=== PATIENT | female | born 1940 | race Caucasian/White ===

== ENCOUNTER 2017-02-14 17:50 | Emergency (ER) | payer MEDICARE, OTHER ==
[2017-02-14] MEDS: HYDROmorphONE 1 MG/ML SYG IV (18:48)
[2017-02-14] MEDS: SOD CHLORIDE 0.9% 500 ML IV (18:48)
[2017-02-14] MEDS: ONDANSETRON 4 MG INJ IV (18:48)
[2017-02-14 19:06] LABS: ADD MAN DIFF? NO
[2017-02-14 19:08] LABS: BASOPHILS % 0.3 % (0.0-2.0); EOSINOPHILS # 0.2 10^3/ul (0.0-0.5); EOSINOPHILS % 2.1 % (0.0-7.0); HEMATOCRIT 40.6 % (37.0-47.0); HEMOGLOBIN 13.1 g/dl (12.0-16.0); LYMPHOCYTES # 1.8 10^3/ul (0.8-2.9); LYMPHOCYTES % 24.2 % (15.0-51.0); MEAN CORPUSCULAR HEMOGLOBIN 29.8 pg (29.0-33.0); MEAN CORPUSCULAR HGB CONC 32.3 g/dl (32.0-37.0); MEAN CORPUSCULAR VOLUME 92.3 fl (82.0-101.0); MEAN PLATELET VOLUME 9.3 fl (7.4-10.4); MONOCYTE # 0.6 10^3/ul (0.3-0.9); MONOCYTES % 7.9 % (0.0-11.0); NEUTROPHIL # 4.9 10^3/ul (1.6-7.5); NEUTROPHILS % 65.2 % (39.0-77.0); PLATELET COUNT 157 10^3/UL (140-415)
[2017-02-14 19:08] LABS: WHITE BLOOD COUNT 7.5 10^3/ul (4.8-10.8)
[2017-02-14 19:35] LABS: ALANINE AMINOTRANSFERASE 44 IU/L (13-69); ALBUMIN 4.7 g/dl (3.3-4.9); ALBUMIN/GLOBULIN RATIO 1.42; ALKALINE PHOSPHATASE 120 IU/L (42-121); ANION GAP 14 (8-16); ASPARTATE AMINO TRANSFERASE 32 IU/L (15-46); BILIRUBIN,INDIRECT 0.1 mg/dl (0-1.1); BILIRUBIN,TOTAL 0.1 mg/dl (0.2-1.3); BLOOD UREA NITROGEN 19 mg/dl (7-20); CALCIUM 9.2 mg/dl (8.4-10.2); CARBON DIOXIDE 29 mmol/L (21-31); CHLORIDE 103 mmol/L (97-110); CREATININE 0.77 mg/dl (0.44-1.00); GLUCOSE 100 mg/dl (70-220); POTASSIUM 3.9 mmol/L (3.5-5.1); SODIUM 142 mmol/L (135-144)
[2017-02-14] MEDS: HYDROmorphONE 2 MG/ML SYG IV (19:41)
== END 2017-02-14 22:21 | disposition home or self-care (01) ==
LOC: FTE 17:50
DX: G50.0 Trigeminal neuralgia (principal); I10 Essential (primary) hypertension
CPT/HCPCS: 36415; 80053; 85025; 96374; 96375; 96376; 99284-25

== ENCOUNTER 2017-02-15 17:42 | Inpatient (IN) | payer MEDICARE, OTHER ==
[2017-02-15] MEDS: HYDROmorphONE 0.5 MG/0.5 ML SYG IV (19:10)
[2017-02-15] MEDS: KETOROLAC 15 MG INJ IV (19:11)
[2017-02-15] MEDS: IOHEXOL 300MG/ML 150 ML BTL (19:19)
[2017-02-15] MEDS: SOD CHLORIDE 0.9% 100 ML (19:19)
[2017-02-15 19:24] LABS: ADD MAN DIFF? NO
[2017-02-15 19:26] LABS: BASOPHILS % 0.1 % (0.0-2.0); EOSINOPHILS % 0.4 % (0.0-7.0); HEMATOCRIT 37.2 % (37.0-47.0); HEMOGLOBIN 11.8 g/dl (12.0-16.0); LYMPHOCYTES # 0.8 10^3/ul (0.8-2.9); LYMPHOCYTES % 10.4 % (15.0-51.0); MEAN CORPUSCULAR HEMOGLOBIN 29.6 pg (29.0-33.0); MEAN CORPUSCULAR HGB CONC 31.7 g/dl (32.0-37.0); MEAN CORPUSCULAR VOLUME 93.2 fl (82.0-101.0); MEAN PLATELET VOLUME 8.8 fl (7.4-10.4); MONOCYTE # 0.2 10^3/ul (0.3-0.9); MONOCYTES % 2.6 % (0.0-11.0); NEUTROPHIL # 6.7 10^3/ul (1.6-7.5); NEUTROPHILS % 86.1 % (39.0-77.0); PLATELET COUNT 128 10^3/UL (140-415); RED BLOOD COUNT 3.99 10^6/ul (4.20-5.40)
[2017-02-15 19:26] LABS: WHITE BLOOD COUNT 7.8 10^3/ul (4.8-10.8)
[2017-02-15 19:43] LABS: ANION GAP 14 (8-16); BLOOD UREA NITROGEN 15 mg/dl (7-20); CALCIUM 9.1 mg/dl (8.4-10.2); CARBON DIOXIDE 28 mmol/L (21-31); CHLORIDE 101 mmol/L (97-110); CREATININE 0.71 mg/dl (0.44-1.00); GLUCOSE 130 mg/dl (70-220); POTASSIUM 4.1 mmol/L (3.5-5.1); SODIUM 139 mmol/L (135-144)
[2017-02-15] MEDS ORDERED: ACETAMINOPHEN 500 MG TAB (20:31)
[2017-02-15] MEDS: VANCOMYCIN 1 GM (PMX) 250 ML IVPB (20:59)
[2017-02-15] MEDS: CLINDAMYCIN 900 MG/D5W (PMX) 50 ML IVPB (20:59)
[2017-02-15] MEDS: SODIUM CHLORIDE 0.9% 1L BAG IV* (21:17)
[2017-02-15] MEDS ORDERED: NACL 0.9% 3 ML SYG IV (21:30)
[2017-02-15] MEDS ORDERED: ONDANSETRON 4 MG INJ IV (21:30)
[2017-02-15] MEDS ORDERED: BISACODYL (EC) 5 MG TAB PO (21:30)
[2017-02-15] MEDS ORDERED: VANCOMYCIN IV PER PHARMACY XX (21:30)
[2017-02-15] MEDS ORDERED: DOCUSATE SODIUM 100 MG CAP PO (21:30)
[2017-02-15 22:12] LABS: LACTIC ACID 2.1 mmol/L (0.5-2.0)
[2017-02-15] MEDS: METHYLPREDNISOLONE 40 MG INJ IV (23:15)
[2017-02-15] MEDS: carBAMAZepine CHEW 100 MG CHEW PO (23:15)
[2017-02-16 00:16] LABS: LACTIC ACID 1.6 mmol/L (0.5-2.0)
[2017-02-16] MEDS: SOD CHLORIDE 0.9% 1,000 ML IV ×2 (01:19→10:37)
[2017-02-16 01:28] LABS: LACTIC ACID 2.1 mmol/L (0.5-2.0)
[2017-02-16] MEDS: ACETAMINOPHEN 325 MG TAB PO (01:32)
[2017-02-16] MEDS: VALACYCLOVIR 500 MG TAB PO ×3 (02:44→13:58)
[2017-02-16] MEDS: HYDROmorphONE 0.5 MG/0.5 ML SYG IV ×2 (02:45→20:12)
[2017-02-16] MEDS: SOD CHLORIDE 0.9% 500 ML IV (04:55)
[2017-02-16 06:19] LABS: ADD MAN DIFF? NO
[2017-02-16] MEDS: PANTOPRAZOLE 40 MG INJ IV (06:31)
[2017-02-16 06:35] LABS: BASOPHILS % 0.1 % (0.0-2.0); EOSINOPHILS % 0.1 % (0.0-7.0); HEMATOCRIT 32.1 % (37.0-47.0); HEMOGLOBIN 10.3 g/dl (12.0-16.0); LYMPHOCYTES # 0.7 10^3/ul (0.8-2.9); LYMPHOCYTES % 9.6 % (15.0-51.0); MEAN CORPUSCULAR HEMOGLOBIN 29.9 pg (29.0-33.0); MEAN CORPUSCULAR HGB CONC 32.1 g/dl (32.0-37.0); MEAN CORPUSCULAR VOLUME 93.3 fl (82.0-101.0); MEAN PLATELET VOLUME 8.8 fl (7.4-10.4); MONOCYTE # 0.5 10^3/ul (0.3-0.9); MONOCYTES % 6.4 % (0.0-11.0); NEUTROPHIL # 6.3 10^3/ul (1.6-7.5); NEUTROPHILS % 83.4 % (39.0-77.0); PLATELET COUNT 119 10^3/UL (140-415); RED BLOOD COUNT 3.44 10^6/ul (4.20-5.40); RED CELL DISTRIBUTION WIDTH 13.2 % (11.5-14.5)
[2017-02-16 06:35] LABS: WHITE BLOOD COUNT 7.5 10^3/ul (4.8-10.8)
[2017-02-16 07:00] LABS: LACTIC ACID 1.3 mmol/L (0.5-2.0)
[2017-02-16 07:04] LABS: ALANINE AMINOTRANSFERASE 38 IU/L (13-69); ALBUMIN 3.4 g/dl (3.3-4.9); ALBUMIN/GLOBULIN RATIO 1.25; ALKALINE PHOSPHATASE 81 IU/L (42-121); ANION GAP 13 (8-16); ASPARTATE AMINO TRANSFERASE 21 IU/L (15-46); BILIRUBIN,INDIRECT 0.4 mg/dl (0-1.1); BILIRUBIN,TOTAL 0.4 mg/dl (0.2-1.3); BLOOD UREA NITROGEN 13 mg/dl (7-20); CALCIUM 8.3 mg/dl (8.4-10.2); CARBON DIOXIDE 27 mmol/L (21-31); CHLORIDE 106 mmol/L (97-110); CHOL/HDL RATIO 2.6 RATIO; CHOLESTEROL 164 mg/dl (100-200); CREATININE 0.69 mg/dl (0.44-1.00); GLUCOSE 130 mg/dl (70-220); HDL CHOLESTEROL 63 mg/dl (33-92); LDL CHOLESTEROL,CALCULATED 85 mg/dl; MAGNESIUM 1.9 mg/dl (1.7-2.5); POTASSIUM 4.3 mmol/L (3.5-5.1); SODIUM 142 mmol/L (135-144); TOTAL PROTEIN 6.1 g/dl (6.1-8.1); TRIGLYCERIDES 80 mg/dl (0-149)
[2017-02-16] MEDS ORDERED: VALACYCLOVIR 500 MG TAB PO (09:00)
[2017-02-16] MEDS: METHYLPREDNISOLONE 40 MG INJ IV ×2 (09:38→20:17)
[2017-02-16] MEDS: GABAPENTIN 300 MG CAP PO ×3 (09:42→20:10)
[2017-02-16] MEDS: carBAMAZepine CHEW 100 MG CHEW PO ×2 (09:43→20:11)
[2017-02-16] MEDS: METOPROLOL 25 MG TAB PO ×2 (09:44→20:11)
[2017-02-16] MEDS: VANCOMYCIN 1.25 GM in SODIUM CHLORIDE 0.45 % 250 ML IVPB (11:55)
[2017-02-16] MEDS: ATORVASTATIN 20 MG TAB PO (20:10)
[2017-02-16] MEDS: CARBAMIDE PEROXIDE 6.5% 15ML OTIC RIGHT EAR (21:00)
[2017-02-16] MEDS: CLINDAMYCIN 150 MG CAP PO (23:39)
[2017-02-16] MEDS: hydrALAzine 20 MG INJ IV (23:50)
[2017-02-17] MEDS: CLINDAMYCIN 150 MG CAP PO ×3 (00:05→11:22)
[2017-02-17] MEDS: HYDROmorphONE 0.5 MG/0.5 ML SYG IV ×2 (01:08→05:26)
[2017-02-17] MEDS: PANTOPRAZOLE 40 MG INJ IV (05:25)
[2017-02-17] MEDS: METOPROLOL 25 MG TAB PO (08:26)
[2017-02-17] MEDS: GABAPENTIN 300 MG CAP PO ×2 (08:26→12:00)
[2017-02-17] MEDS: METHYLPREDNISOLONE 40 MG INJ IV (08:27)
[2017-02-17] MEDS: carBAMAZepine CHEW 100 MG CHEW PO (08:27)
[2017-02-17] MEDS: CARBAMIDE PEROXIDE 6.5% 15ML OTIC RIGHT EAR (08:27)
[2017-02-17] MEDS: LISINOPRIL 20 MG TAB PO (11:22)
[2017-02-17 17:41] LABS: VARICELLA-ZOSTER VIRUS AB IgM 0.34
== END 2017-02-17 14:20 | disposition home or self-care (01) | DRG 872 ==
LOC: MS2 22:31 → E/R 17:42
DX: A41.9 Sepsis, unspecified organism (principal); E87.2 Acidosis; L03.211 Cellulitis of face; Z68.41 Body mass index [BMI] 40.0-44.9, adult; G50.0 Trigeminal neuralgia; K11.23 Chronic sialoadenitis; R73.03 Prediabetes; E66.01 Morbid (severe) obesity due to excess calories; I10 Essential (primary) hypertension; E78.5 Hyperlipidemia, unspecified; H61.21 Impacted cerumen, right ear
CPT/HCPCS: 36415; 70486; 80048; 80053; 80061; 83036; 83605; 83735; 84443; 85025; 86787; 87040; 87400; 96374; 96375; 99291-25

== ENCOUNTER 2017-12-03 21:34 | Emergency (ER) | payer MEDICARE, OTHER | END 2017-12-03 22:27 | disposition home or self-care (01) | LOC: E/R 21:34 | DX: S00.33XA Contusion of nose, initial encounter (principal); R07.89 Other chest pain; W18.39XA Other fall on same level, initial encounter; Y92.89 Other specified places as the place of occurrence of the external cause; Z91.010 Allergy to peanuts | CPT/HCPCS: 70450; 71045; 99284-25 ==